=== PATIENT | male | born 1950 | race Caucasian/White ===

== ENCOUNTER 2017-01-02 11:40 | Emergency (ER) | payer SELFPAY ==
[2017-01-02 11:40] VITALS: BMI 30.8
[2017-01-02 11:43] VITALS: BP 154/88; PULSE 76; RESP 18; TEMP 98; O2SAT 96
== END 2017-01-02 13:04 | disposition left against medical advice (07) ==
LOC: C.ER 11:40
DX: F10.10 Alcohol abuse, uncomplicated (principal); Y90.9 Presence of alcohol in blood, level not specified

== ENCOUNTER 2017-04-21 13:44 | Emergency (ER) | payer OTHER ==
[2017-04-21 13:44] VITALS: BMI 30.8
--- NOTE | 2017-04-21 14:32 | C.PDOC ---
History Of Present Illness 67 year old male presents to the ED intoxicated. Patient is well known to the ED due to multiple visit for the same complaints. Patient reports he was drinking alcohol today. Patient is calm, cooperative at this time. Patient denies SI/HI, hallucinations, trauma, injury, fall, CP, SOB. Time Seen by Provider: 04/21/17 14:31 Chief Complaint (Nursing): Substance Abuse History Per: Patient History/Exam Limitations: intoxication Onset/Duration Of Symptoms: Hrs Current Symptoms Are (Timing): Still Present Suicide/Self Injury Attempted (Context): None Modifying Factor(s): Alcohol Associated Symptoms: denies: Depression, Suicidal Thoughts, Suicidal Plan Recent travel outside of the [place]: No Additional History Per: Patient Past Medical History Reviewed: Historical Data, Nursing Documentation, Vital Signs Vital Signs: Last Vital Signs Temp 98.6 F 04/21/17 18:51 Pulse 75 04/21/17 18:51 Resp 18 04/21/17 18:51 BP 118/75 04/21/17 18:51 Pulse Ox 97 04/21/17 18:51 - Medical History PMH: HTN Surgical History: No Surg Hx Family History: States: Unknown Family Hx - Social History Hx Tobacco Use: No Hx Alcohol Use: Yes Hx Substance Use: No - Immunization History Hx Tetanus Toxoid Vaccination: No Hx Influenza Vaccination: No Hx Pneumococcal Vaccination: No Review Of Systems Constitutional: Negative for: Fever, Chills Cardiovascular: Negative for: Chest Pain Respiratory: Negative for: Shortness of Breath Gastrointestinal: Negative for: Vomiting, Abdominal Pain Skin: Negative for: Rash Neurological: Negative for: Weakness, Numbness Psych: Negative for: Depression, Suicidal ideation Physical Exam - Physical Exam Appears: Non-toxic, Other (Intoxicated) Skin: Normal Color, Warm, Dry Head: Atraumatic, Normacephalic Nose: No Discharge, No Deformity Oral Mucosa: Moist Neck: Normal ROM, Supple Chest: Symmetrical Cardiovascular: Rhythm Regular, No Murmur Respiratory: Normal Breath Sounds, No Rales, No Rhonchi, No Wheezing Gastrointestinal/Abdominal: Soft, No Tenderness, No Guarding, No Rebound Extremity: Normal ROM, No Deformity, No Swelling ED Course And Treatment O2 Sat by Pulse Oximetry: 100 (On RA) Pulse Ox Interpretation: Normal Reevaluation Time: 18:58 Reassessment Condition: Improved (PT W CLEAR SPEECH AND THOUGHT, STEADY GAIT. AO3. NO S/S ACUTE INTOX. PT MED CLEAR FOR DC.) Medical Decision Making Medical Decision Making: Impression : alcohol intoxication Disposition Counseled Patient/Family Regarding: Diagnosis, Need For Followup - Disposition Referrals: [facility] [Outside] [facility] [Outside] Disposition: HOME/ ROUTINE Disposition Time: 18:58 Condition: IMPROVED Instructions: Alcohol Intoxication (ED) Forms: [employer] (Fijian) - Clinical Impression Clinical Impression: Alcohol intoxication - Scribe Statement The provider has reviewed the documentation as recorded by the Scribe Jose Chung All medical record entries made by the Scribe were at my direction and personally dictated by me. I have reviewed the chart and agree that the record accurately reflects my personal performance of the history, physical exam, medical decision making, and the department course for this patient. I have also personally directed, reviewed, and agree with the discharge instructions and disposition.
[2017-04-21 18:51] VITALS: BP 118/75; PULSE 75; RESP 18; TEMP 98.6
[2017-04-21 18:58] VITALS: O2SAT 100
== END 2017-04-21 19:31 | disposition home or self-care (01) ==
LOC: C.ER 13:44
DX: F10.129 Alcohol abuse with intoxication, unspecified (principal); Y90.9 Presence of alcohol in blood, level not specified